=== PATIENT | male | born 1995 | race Two or more races ===

== ENCOUNTER 2020-11-15 12:19 | Emergency (ER) | payer MEDICAID, OTHER ==
[~2020-11-15] VITALS: Ht 167.6 cm; Wt 72.6 kg
[2020-11-15 12:47] VITALS: BP 119/79
[2020-11-15 12:50] LABS: Urine Bacteria FEW /hpf (None Seen); Urine Blood 3+ /uL (Negative); Urine Mucus FEW (None Seen); Urine WBC 2239 /hpf (0 - 3)
[2020-11-15] MEDS ORDERED: cefTRIAXone SOD 1,000 MG VL IM ONE (13:15)
== END 2020-11-15 13:31 | disposition home or self-care (01) ==
LOC: ER 12:19
DX: N39.0 Urinary tract infection, site not specified (principal)
CPT/HCPCS: 81001; 96372; 99283; J0696

== ENCOUNTER 2024-01-05 12:05 | Emergency (ER) | payer MEDICAID ==
[~2024-01-05] VITALS: Ht 167.6 cm; Wt 88.0 kg
[~2024-01-05 12:05] MED LIST: CIPR-173 PO; PHEN-922 PO
[2024-01-05 13:08] LABS: Urine Bacteria None Seen /hpf (None Seen)
[2024-01-05 13:23] VITALS: BP 136/96; PULSE 84; RESP 16; TEMP 97.4; O2SAT 98
[2024-01-05 13:25] LABS: Urine Blood Negative /uL (Negative); Urine Clarity Clear (Clear); Urine Color Light-Yellow (Yellow); Urine Protein, UAD Negative (Negative); Urine Specific Gravity 1.016 (1.001-1.035); Urine Urobilinogen Normal (Negative); Urine WBC <1 /hpf (0 - 3)
[2024-01-06 12:07] LABS: RPR Quant 1:32 titer (NonRea<1:1)
[2024-01-06 23:06] LABS: Chlamydia Trachomatis, NAA Negative (Negative); Neisseria gonorrhoeae, NAA Negative (Negative)
== END 2024-01-05 14:04 | disposition home or self-care (01) ==
LOC: ER 12:05
DX: R36.9 Urethral discharge, unspecified (principal); R39.198 Other difficulties with micturition; F15.90 Other stimulant use, unspecified, uncomplicated; Z20.2 Contact with and (suspected) exposure to infections with a predominantly sexual mode of transmission; Z79.899 Other long term (current) drug therapy
CPT/HCPCS: 81001; 86592; 86703

== ENCOUNTER 2024-01-30 18:52 | Emergency (ER) | payer MEDICAID ==
[~2024-01-30] VITALS: Ht 170.2 cm; Wt 88.6 kg
[2024-01-30] MEDS ORDERED: DOXY-286 PO (19:17)
--- NOTE | 2024-01-30 19:21 | ED.PDOC ---
General HPI Comments 28 y.o male presents to the ED for a chief complaint of dysuria and penile discharge. Patient was seen for these complains 2 weeks ago, was diagnosed with an STD, prescribed medication in which he took but denies any symptom relief. Patient denies new onset symptoms including fever, chills, nausea, vomiting, bleeding from penile region, testicle swelling or pain. He denies any other medical history or allergies. Time Seen by MD: 19:10 Primary Care Provider: NONE Reviewed notes: Nurses Notes, Medications, Allergies Allergies: Coded Allergies: NO KNOWN ALLERGIES (Unverified , 11/15/20) Home Meds Active Scripts Doxycycline Hyclate (DOXYCYCLINE HYCLATE) 100 Mg Tab, 1 TAB PO BID, #14 TAB Prov:VANESSA WESTBROOK MD 01/30/24 Phenazopyridine HCl (Phenazopyridine Hydrochlo) 200 Mg Tab, 200 MG PO TID for 2 Days, #6 TAB Prov:CHRISTI BALL 03/31/21 Ciprofloxacin Hcl (Cipro) 500 Mg Tab, 500 MG PO BID for 10 Days, #20 TAB Prov:CHRISTI BALL 03/31/21 Information Source: Patient Mode of Arrival: Ambulatory Severity: Moderate Timing: Weeks (2) Duration: Since onset Onset: Following sexual contact Symptoms: Dysuria, Penile discharge History of: STD Penile discharge: Clear, White Modifying factors: None associated signs and symptoms: Dysuria, Penile Discharge Past Medical History PAST MEDICAL HISTORY: UTI'S Past Medical History (Other): STD Surgical History: Denies all surgeries Family History Family History: Reviewed,noncontributory to illness Social History Smoker: Non-Smoker Alcohol: Denies ETOH Use Drugs: Marijuana Lives In: Home Constitutional: denies: chills, diaphoresis, fatigue, fever, malaise, sweats, weakness, others EENTM: denies: blurred vision, double vision, ear bleeding, ear discharge, ear drainage, ear pain, ear ringing, eye pain, eye redness, hearing loss, mouth pain, mouth swelling, nasal discharge, nose bleeding, nose congestion, nose pain, photophobia, tearing, throat pain, throat swelling, voice changes, others Respiratory: denies: cough, hemoptysis, orthopnea, SOB at rest, shortness of breath, SOB with excertion, stridor, wheezing, others Cardiovascular: denies: chest pain, dizzy spells, diaphoresis, Dyspnea on exertion, edema, irregular heart beat, left arm pain, lightheadedness, palpitations, PND, syncope, others Gastrointestinal: denies: abdomen distended, abdominal pain, blood streaked bowels, constipated, diarrhea, dysphagia, difficulty swallowing, hematemesis, melena, nausea, poor appetite, poor fluid intake, rectal bleeding, rectal pain, vomiting, others Genitourinary: reports: dysuria, penile discharge, pain; denies: burning, flank pain, frequency, hematuria, incontinence, penile sore, testicle pain, testicle swelling, urgency, others Neurological: denies: dizziness, fainting, headache, left sided numbness, left sided weakness, numbness, paresthesia, pre-existing deficit, right sided numbness, right sided weakness, seizure, speech problems, tingling, tremors, weakness, others Musculoskeletal: denies: back pain, gout, joint pain, joint swelling, muscle pain, muscle stiffness, neck pain, others Integumetry: denies: bruises, change in color, change in hair/nails, dryness, laceration, lesions, lumps, rash, wounds, others Allergic/Immunocompromised: denies: Difficulty Healing, Frequent Infections, Hives, Itching, others Hematologic/Lymphatic: denies: anemia, blood clots, easy bleeding, easy bruising, swollen glands, others Endocrine: denies: excessive hunger, excessive sweating, excessive thirst, excessive urination, flushing, intolerance to cold, intolerance to heat, unexplained weight gain, unexplained weight loss, others Psychiatric: denies: anxiety, bipolar disorder, depression, hopeless, panic disorder, schizophrenia, sleepless, suicidal, others All Other Systems: Reviewed and Negative Physical Exam General Appearance: No Apparent Distress HEENT: Normal ENT Inspection, Pharynx Normal, TMs Normal Neck: Full Range of Motion, Non-Tender, Normal, Normal Inspection Respiratory: Chest Non-Tender, Lungs Clear, No Accessory Muscle Use, No Respiratory Distress, Normal Breath Sounds Cardiovascular: No Edema, No JVD, No Murmur, No Gallop, Normal Peripheral Pulses, Regular Rate/Rhythm Breast Exam: Deferred Gastrointestinal: No Organomegaly, Non Tender, No Pulsatile Mass, Normal Bowel Sounds, Soft Genitalia: Deferred Pelvic: Deferred Rectal: Deferred Extremities: No calf tenderness, Normal capillary refill, Normal inspection, Normal range of motion, Non-tender, No pedal edema Musculoskeletal : Apperance: Normal Neurologic: Alert, club attendant II-XII nml as Tested, No Motor Deficits, Normal Affect, Normal Mood, No Sensory Deficits Cerebellar Function: Normal Reflexes: Normal Skin: Dry, Normal Color, Warm Lymphatic: No Adenopathy Was a procedure done? Was a procedure done?: No Differential Diagnosis Kidney stone (Female): N/A Penile/Scrotal: Epidiymitis, STD Urinary Problem (Male): Urolithiasis, UTI X-Ray, Labs, Meds, VS The patient was given Rocephin 250 mg IM The patient was being discharged at this time The patient will follow up with the primary care doctor The patient will return to the emergency department's condition worsens The patient was also given a prescription of doxycycline Time of 1ST Reevaluation: 19:18 Reevaluation 1ST: Improved Patient Education/Counseling: Diagnosis, Treatment, Prognosis, Need For Follow Up Family Education/Counseling: No Family Present Departure 1 Departure Time of Disposition: 19:22 Impression: Primary Impression: Possible exposure to STD Disposition: 01 HOME / SELF CARE / HOMELESS Condition: Fair e-Prescriptions Doxycycline Hyclate (DOXYCYCLINE HYCLATE) 100 Mg Tab 1 TAB PO BID, #14 TAB Prov: VANESSA WESTBROOK MD 01/30/24 Discharged With: Self Critical Care Note Critical Care Time?: No Stability Stability form required: No I personally scribed for VANESSA WESTBROOK MD ([email or web address]) on 01/30/24 at 19:21. Electronically submitted by Leah Hernandez ([facility]). VANESSA WESTBROOK MD Jan 30, 2024 19:21
[2024-01-30 21:05] VITALS: BP 122/89; PULSE 86; RESP 16; TEMP 98.3; O2SAT 99
[2024-01-30] MEDS: cefTRIAXone SODIUM 250 MG VL IM ONE (21:19)
== END 2024-01-30 21:21 | disposition home or self-care (01) ==
LOC: ER 18:52
DX: N50.89 Other specified disorders of the male genital organs (principal); F12.10 Cannabis abuse, uncomplicated; Z20.2 Contact with and (suspected) exposure to infections with a predominantly sexual mode of transmission; Z87.440 Personal history of urinary (tract) infections
CPT/HCPCS: 96372; 99283; J0696